=== PATIENT | male | born 1960 | race Caucasian/White ===

== ENCOUNTER → 2018-05-06 09:54 | Outpatient (CLI) | payer OTHER, SELFPAY ==
--- NOTE | 2018-05-06 09:59 | ECHOD_ITS ---
Reason For Study: dyspnea/SOB Procedure This was a 2D Doppler, Color Flow transthoracic echocardiogram. Exam performed in department. Left Ventricle Normal LV size. Left ventricular systolic function is normal. The estimated ejection fraction is 60 %. Transmitral and pulmonary venous doppler flow suggestive of impaired relaxation of left ventricle. No regional wall motion abnormalities noted. Right Ventricle Normal RV size. Normal systolic function. Atria Normal left atrium. Normal right atrium. Mitral Valve Normal mitral valve. Tricuspid Valve Normal tricuspid valve. Mild (1+) tricuspid valve insufficiency. Pulmonary artery systolic pressure is 24 mmHg. Aortic Valve Normal aortic valve. Trisinus/trileaflet aortic valve. Pulmonic Valve Normal pulmonic valve. Great Vessels Normal aortic root. The pulmonary artery is normal size. Normal inferior vena cava. Pericardium/Pleural No pericardial effusion. MMode/2D Measurements & Calculations LVIDd: 4.8 cm IVSd: 1.3 cm Ao root diam: 3.3 cm LVIDs: 3.1 cm LVPWd: 1.3 cm LA dimension: 4.4 cm RVDd: 3.5 cm FS: 34.7 % LAV(MOD-bp): 54.0 ml LA A4 area: 17.7 cm2 RA A4 area: 14.5 cm2 LAV(MOD-bp) Indexed: 22.0 ml/m2 LAV(MOD-sp2): 57.8 ml LAV(MOD-sp4): 49.9 ml Doppler Measurements & Calculations MV E max taurus: 75.6 cm/sec Lat Peak E' Taurus: 11.7 cm/sec Med Peak E' Taurus: 9.2 cm/sec MV A max taurus: 88.2 cm/sec E/E' lat: 6.4 E/E' med: 8.2 MV E/A: 0.86 Ao V2 max: 107.7 cm/sec LV V1 max: 96.9 cm/sec PA V2 max: 96.1 cm/sec Ao max P.6 mmHg LV V1 max P.8 mmHg TR max taurus: 228.7 cm/sec TR max P.9 mmHg Interpretation Summary Normal LV size. Left ventricular systolic function is normal. The estimated ejection fraction is 60 %. Transmitral and pulmonary venous doppler flow suggestive of impaired relaxation of left ventricle Pulmonary artery systolic pressure is 24 mmHg. Ordering Physician: Keyshawn Fierro Referring Physician: Kristy Denton Performed By: Natalia Aquino, MARVA, RVT
== END ==
PROVIDERS: Family Provider Family Medicine; PCP Family Medicine; Visit Provider Nurse Practitioner Family
DX: I36.1 Nonrheumatic tricuspid (valve) insufficiency (principal); I34.0 Nonrheumatic mitral (valve) insufficiency; R06.02 Shortness of breath
CPT/HCPCS: 93306

== ENCOUNTER → 2018-09-17 08:18 | Outpatient (CLI) | payer OTHER, SELFPAY ==
--- NOTE | 2018-09-17 08:22 | VDLE_ITS ---
Reason For Study: EDEMA RIGHT LEFT GSV is normal. CFV is compressible, spontaneous, phasic, CFV is compressible, spontaneous, phasic, competent, and demonstrates normal competent and demonstrates normal augmentation. augmentation. FV is compressible, spontaneous, phasic, competent and demonstrates normal augmentation. POP V is compressible, spontaneous, phasic, competent and demonstrates normal augmentation. T/P Trunk is compressible. PTV is compressible. RT PerV is compressible. Procedure Exam performed in department. The exam was diagnostic. A preliminary report was called and/or faxed to @ [phone] @ 8:55 am. <> Interpretation Summary Deep veins of the right lower extremity are patent and compressible segmentally. There is no evidence of right lower extremity deep vein thrombosis. Valvular competence appears intact within the proximal deep venous system on the right . The right greater saphenous vein appears patent and compressible segmentally. Ordering Physician: Keyshawn Baig Performed By: Natalia Aquino RDCS, RVT
== END ==
PROVIDERS: Family Provider Family Medicine; PCP Family Medicine; Visit Provider Family Medicine
DX: R60.0 Localized edema (principal)
CPT/HCPCS: 93971

== ENCOUNTER → 2018-12-20 10:29 | Outpatient (CLI) | payer OTHER, SELFPAY ==
[2018-08-03 13:15] VITALS: BMI 34.4
== END ==
PROVIDERS: Family Provider Family Medicine; PCP Family Medicine; Visit Provider Family Medicine
DX: F32.9 Major depressive disorder, single episode, unspecified (principal)
CPT/HCPCS: 36415; 84443

== ENCOUNTER 2019-03-02 20:46 | Emergency (ER) | payer OTHER, SELFPAY ==
[2019-03-02 20:48] VITALS: BP 169/104; PULSE 84; PULSE 88; RESP 17; TEMP 36.1; O2SAT 98; O2SAT 99; BMI 33.3
--- NOTE | 2019-03-02 20:54 | CT_ITS ---
We are attempting to reach Luis Gloria MD to discuss findings. An addendum with communication details will be sent when the communication is complete. STUDY: CT BRAIN WITHOUT CONTRAST REASON FOR EXAM: Male, 59 years old. Trauma. Anticoagulated patient. He was RADIATION DOSAGE (If Supplied By Facility): CTDIvol = ( 44.99 ) mGy, DLP = ( 863.60 ) mGycm TECHNIQUE: Transaxial CT imaging of the brain was performed without administration of intravenous contrast material. Individualized dose optimization techniques were used for this CT. COMPARISON: 09/19/2017 FINDINGS: Normal soft tissue structures. Normal calvarium. No skull fractures are seen. There is a moderately large acute right subdural hematoma extending the entire length of the right cerebral hemisphere. It measures 1.1 cm greatest thickness. It is causing mass effect. There is effacement of sulci. There is compression of the right lateral ventricle. There is 1.3 cm of midline shift from right to left. Additional subdural hematoma seen along the interhemispheric fissure and the right tentorium. There is subfalcine herniation. No definite transtentorial herniation. There are no other acute abnormalities. Normal visualized paranasal sinuses. CT/Brain/Head without Contrast IMPRESSION: Moderately large acute right subdural hematoma with significant mass effect and 1.3 cm of midline shift from right to left. Electronically Signed: Tito Cotto MD at 21:26 EDT , Service support ,
--- NOTE | 2019-03-02 21:10 | ED.RN ---
contacting [facility] for transfer
--- NOTE | 2019-03-02 21:10 | ED.RN ---
called [email or web address] checking weather at this time
--- NOTE | 2019-03-02 21:13 | EKG12_ITS ---
Test Reason : BLEED Blood Pressure : / mmHG Vent. Rate : 089 BPM Atrial Rate : 089 BPM P-R Int : 172 ms QRS Dur : 094 ms QT Int : 388 ms P-R-T Axes : 089 076 020 degrees QTc Int : 472 ms Normal sinus rhythm Nonspecific T wave abnormality Abnormal ECG Confirmed by SYD WALKER, OLY ([id number]), editorial director OLAMIDE QUICK ([id number]) on 03/07/2019 10:51:42 AM Referred By: MR Confirmed By:OLY VELARDE MD
--- NOTE | 2019-03-02 21:17 | ED.DCSUM_ITS ---
History of Present Illness Chief Complaint: Head Injury Narrative: Patient presenting for evaluation secondary to head injury. Patient is on Coumadin secondary to DVT. Patient reports that at about 3 PM he suffered a strike to the head as he was doing yard work in a branch hit him in the head. There is no loss of consciousness. Patient denied that he had any initial visual changes numbness or weakness. Patient reports that just prior to arrival however, he developed a significant headache. This is generalized and severe. He denies any visual changes numbness or weakness at this time. He has not vomited. Pain is sharp and throbbing and generalized throughout his entire head. He denies any neck pain or any other injuries at this time. Past Medical History - Allergies and Home Meds Allergies/Adverse Reactions: Allergies erythromycin base Allergy (Verified 03/02/19 20:47) Nausea PT STATES HE WAS TOLD TO NEVER TAKE IT AGAIN D/T SEVERITY OF NAUSEA gabapentin [From Neurontin] Allergy (Verified 03/02/19 20:47) Other ITP Penicillins Allergy (Verified 03/02/19 20:47) Rash venom-honey bee [bee venom (honey bee)] Allergy (Verified 03/02/19 20:47) Anaphylaxis colestipol Adverse Reaction (Mild, Verified 03/02/19 20:47) Diarrhea and hemorroids Primary Care Physician: Kristy Denton MD [Primary Care Provider] - Surgical History: - - Cervical fusion ?2, left nephrectomy, splenectomy, left retinal surgery status post trauma. Smoking Status: Never smoker - Family History Paternal Family History: Family History (Last Reviewed 08/03/18 @ 13:37 by Duke Landaverde MD) Father CAD (coronary artery disease) Myocardial infarction Diabetes Hx of CABG Uterine cancer icd Mother Diabetes Brother Hypertension Hyperlipidemia Brother Hypertension Hyperlipidemia Other Heart disease Family History: Reports: Heart Disease, Hypertension Sibling Family History: Family History (Last Reviewed 08/03/18 @ 13:37 by Duke Landaverde MD) Father CAD (coronary artery disease) Myocardial infarction Diabetes Hx of CABG Uterine cancer icd Mother Diabetes Brother Hypertension Hyperlipidemia Brother Hypertension Hyperlipidemia Other Heart disease Family History: Reports: Heart Disease, Hypertension Review of Systems All systems negative except as indicated Eyes: Denies: Visual changes - bilaterally Neurological: Reports: Headache. Denies: Weakness, Parasthesia Physical Exam Vital Signs/Narrative: Vital Signs Temp Pulse Resp BP Pulse Ox 03/02/19 20:48 96.9 F L 88 17 169/104 H 98 Inital Vital Signs reviewed: Yes General: Well nourished, Well developed, - - Relatively distressed secondary to pain Airways patent, breath sounds equal bilateral, central peripheral pulses 2+ and symmetric, GCS 15 out of 15 Head: Normocephalic, - - Abrasion noted over the patient's right parietal region of the scalp, no evidence of depressed skull fracture Eyes: Perrl, EOMI Neck: Nontender, Full ROM. Negative for: Spinal Tenderness Cardiovascular: Regular rate, Regular rhythm, No murmurs Respiratory: No distress, CTA bilaterally, Chest nontender Abdomen: Soft, Nontender, Nondistended, Normal bowel sounds Back: Nontender Skin: Normal color, No rash Neurological: Alert, Oriented x3, Cranial nerves II-XII grossly intact, Normal Strength, Normal Sensation Diagnostic/Tx/Re-eval - EKG Initial EKG Interpretation: - - Sinus rhythm of 89 with nonspecific T wave changes, isoelectric ST segments, normal intervals no evidence of acute ischemia or arrhythmia. - Medical Decision Making Patient presented secondary to head injury. Patient appeared somewhat in extremis on presentation, he was immediately taken back to CTA which revealed the patient to have a right-sided subdural hematoma with some midline shift. IV was immediately established, laboratory studies were obtained. Patient was given Kcentra as well as Keppra. Transport was immediately arranged via [email or web address], acceptance was arranged via [facility] for trauma. Patient was maintaining his airway, not obtunded, he did not require intubation for airway control. Patient was transferred in critical condition. Disposition: Transfer Transferred to: [facility] Critical care time (excluding procedures): 30-74 minutes ED Disposition - Plan for ED Patient: Disposition: [facility] Diagnosis: Subdural hematoma Referrals: Kristy Denton MD [Primary Care Provider] -
[2019-03-02] MEDS: Ondansetron 4 MG/2 ML Vial IV (21:22)
[2019-03-02] MEDS: morphine 8 MG/ML Syringe IV (21:22)
[2019-03-02 21:26] LABS: Absolute Lymphocyte Count 4.05 X10^3/ul (0.83-4.51); Absolute Neutrophil Count 17.7 X10^3/uL (2.0-7.7); Basophil% 0.4 % (0-1); Eosinophil# 0.22 X10^3/uL; Eosinophils% 0.9 % (0-5); Hematocrit 41.3 % (40-54); Hemoglobin 14.3 g/dl (13.0-16.5); Lymphocyte # 4.05 X10^3/ul (4.0); Lymphocyte % 16.8 % (19-41); Mean Corp Hgb Conc 34.6 g/gl (32-36); Mean Corpuscular Hgb 31.4 pg (27.0-32.0); Mean Corpuscular Volume 90.8 fL (80-94); Mean Platelet Vol. 8.8 fl (6.2-12.0); Monocyte# 1.92 X10^3/uL; Neutrophil # 17.74 X10^3/uL (2.7-7.7); Neutrophil % 73.5 % (47-70); Platelet Count 587 K/mm3 (150-450); RBC Distribution Width CV 14.5 % (11.6-14.6); RBC Distribution Width SD 47.5 fl (35.1-43.9); Red Blood Count 4.55 M/mm3 (4.6-6.2); White Blood Count 24.1 K/mm3 (4.4-11.0)
[2019-03-02 21:28] LABS: Differential Indicated SCAN CRITERIA MET; POSITIVE COUNT NO; POSITIVE DIFFERENTIAL YES; POSITIVE MORPHOLOGY NO
[2019-03-02 21:32] LABS: International Normalized Ratio 1.9; Partial Thromboplast Time 29.2 Seconds (24.1-36.2); Prothrombin Time (Protime)PT. 21.7 SECONDS (11.7-14.9)
[2019-03-02 21:35] LABS: Anion Gap 9 (5-15); BUN 12 mg/dL (7-18); Calcium,Total 9.6 mg/dL (8.5-10.1); Chloride 107 mmol/L (98-107); Creatinine, Serum 1.34 mg/dL (0.70-1.30); EST Glomerular Filtration Rate 58 mL/min (>60); Est Glom Filt Rate - Afr Amer 71 mL/min (>60); Estimated Creatinine Clearance 70.72 ml/min; Glucose 150 mg/dL (74-106); Potassium 3.6 mmol/L (3.5-5.1); Sodium Level 138 mmol/L (136-145)
[2019-03-02 21:42] LABS: Differential Comment SCANNED
[2019-03-02] MEDS: levETIRAcetam IV 1,000 MG/100 ML BAG 400 MG IV (21:46)
[2019-03-02 21:47] VITALS: BP 176/103; PULSE 85; RESP 24; O2SAT 100
[2019-03-02] MEDS: HUMAN PROTHROMBIN COMPLX(PCC) 2,500 UNIT in Viaflex Bag 1 BAG 500 UNIT IV (21:47)
--- NOTE | 2019-03-02 21:59 | ED.RN ---
PATIENT WAS LIFE FL[facility] AND REPORT GIVEN TO [employer]. IV MEDICATION WERE BEING STARTED BY THE TEAM BEFORE GOING OUT THE DOOR AND KEPPRA WAS GIVEN TO TAKE WITH THEM. REPORT WAS GIVEN TO SPARKLE AT [facility]. PATIENT WAS PAINFUL BUT STABLE CURRENTLY. 'S SON IS COMING TO TAKE HER TO THE HOSPITAL. SHE WAS GIVEN SOME INFORMATION ABOUT THE SITUATION TO HELP RELIEVE SOME WORRIES BY THIS NURSE. DIRECTIONS WERE SUPPLIED BY [facility]
[2019-03-03 12:39] LABS: Pathologist Review Reviewed
== END 2019-03-02 21:46 | disposition short-term general hospital (02) ==
LOC: ED 21:14
PROVIDERS: Emergency Provider Emergency Medicine; Family Provider Family Medicine; PCP Family Medicine
DX: S06.5X0A Traumatic subdural hemorrhage without loss of consciousness, initial encounter (principal); I82.409 Acute embolism and thrombosis of unspecified deep veins of unspecified lower extremity; Z79.01 Long term (current) use of anticoagulants; W22.8XXA Striking against or struck by other objects, initial encounter; Y93.H9 Activity, other involving exterior property and land maintenance, building and construction; Y92.007 Garden or yard of unspecified non-institutional (private) residence as the place of occurrence of the external cause; Y99.8 Other external cause status
CPT/HCPCS: 70450; 80048; 85025; 85610; 85730; 93005; 96365; 96368; 96375; 99284; C9132; J7030; A4216; J2405; J3490

== ENCOUNTER → 2019-07-12 | Outpatient (CLI) | payer OTHER, SELFPAY ==
[2019-07-12 12:41] LABS: Cholesterol 133 mg/dL (200); High Density Lipoprotein 41 mg/dL; Triglycerides 82 mg/dL; Very Low Density Lipoprotein 16 mg/dL (5-40)
[2019-07-12 12:55] LABS: Anion Gap 9 (5-15); BUN 11 mg/dL (7-18); BUN/Creat Ratio 11.3 RATIO (10-20); Calcium,Total 9.2 mg/dL (8.5-10.1); Chloride 108 mmol/L (98-107); Creatinine, Serum 0.98 mg/dL (0.70-1.30); EST Glomerular Filtration Rate 84 mL/min (>60); Est Glom Filt Rate - Afr Amer 102 mL/min (>60); Glucose 80 mg/dL (74-106); Potassium 3.8 mmol/L (3.5-5.1); Sodium Level 140 mmol/L (136-145)
== END | disposition home or self-care (01) ==
LOC: MFPLAB 10:17
PROVIDERS: Family Provider Family Medicine; PCP Family Medicine; Referring Provider Family Medicine; Visit Provider Internal Medicine Cardiovascular Disease
DX: E78.5 Hyperlipidemia, unspecified (principal); I10 Essential (primary) hypertension
CPT/HCPCS: 36415; 80048; 80061

== ENCOUNTER → 2019-08-02 | Outpatient (CLI) | payer OTHER, SELFPAY ==
[2019-08-02 12:49] VITALS: BMI 31.3
[2019-08-02 15:33] LABS: Anion Gap 6 (5-15); BUN 11 mg/dL (7-18); BUN/Creat Ratio 10.8 RATIO (10-20); Calcium,Total 9.1 mg/dL (8.5-10.1); Chloride 109 mmol/L (98-107); Creatinine, Serum 1.02 mg/dL (0.70-1.30); EST Glomerular Filtration Rate 80 mL/min (>60); Est Glom Filt Rate - Afr Amer 97 mL/min (>60); Glucose 93 mg/dL (74-106); Potassium 3.7 mmol/L (3.5-5.1); Sodium Level 142 mmol/L (136-145)
[2019-08-02 16:17] LABS: AST(SGOT) 26 U/L (15-37); Alanine Aminotransfer ALT/SGPT 26 U/L (16-61); Albumin, Serum 3.9 g/dL (3.2-5.0); Alkaline Phosphatase 128 U/L (45-117); Globulin 4.3 g/dL (2.2-4.2); Protein, Total 8.2 g/dL (6.4-8.2)
== END | disposition home or self-care (01) ==
LOC: LAB 13:59
PROVIDERS: Family Provider Family Medicine; PCP Family Medicine; Referring Provider Internal Medicine Cardiovascular Disease; Visit Provider Internal Medicine Cardiovascular Disease
DX: I10 Essential (primary) hypertension (principal); E78.00 Pure hypercholesterolemia, unspecified
CPT/HCPCS: 36415; 80048; 80076

== ENCOUNTER → 2020-11-14 12:27 | Outpatient (CLI) | payer OTHER, SELFPAY ==
[2020-08-07 13:12] VITALS: BMI 36.1
[2020-11-14 15:29] LABS: Absolute Lymphocyte Count 5.13 X10^3/uL (0.83-4.51); Absolute Neutrophil Count 7.6 X10^3/uL (2.0-7.7); Basophil# 0.18 X10^3/uL; Basophil% 1.2 % (0-1); Eosinophil# 0.95 X10^3/uL; Eosinophils% 6.2 % (0-5); Hematocrit 46.5 % (40-54); Lymphocyte # 5.13 X10^3/ul (4.0); Lymphocyte % 33.5 % (19-41); Mean Corp Hgb Conc 32.3 g/dL (32-36); Mean Corpuscular Hgb 31.4 pg (27.0-32.0); Mean Corpuscular Volume 97.5 fL (80-94); Mean Platelet Vol. 9.3 fl (6.2-12.0); Monocyte# 1.35 X10^3/uL; Monocyte% 8.8 % (0-10); NRBC Flagged by Analyzer 0 % (0-5); Neutrophil # 7.62 X10^3/uL (2.7-7.7); Neutrophil % 49.6 % (47-70); POSITIVE DIFFERENTIAL YES; Platelet Count 579 K/mm3 (150-450); RBC Distribution Width CV 13.7 % (11.6-14.6); RBC Distribution Width SD 49.8 fl (35.1-43.9); Red Blood Count 4.77 M/mm3 (4.6-6.2); White Blood Count 15.3 K/mm3 (4.4-11.0)
[2020-11-14 15:48] LABS: Differential Indicated SCAN CRITERIA MET
[2020-11-14 15:52] LABS: AST(SGOT) 33 U/L (15-37); Alanine Aminotransfer ALT/SGPT 44 U/L (16-61); Albumin, Serum 4.2 g/dL (3.2-5.0); Alkaline Phosphatase 90 U/L (45-117); Anion Gap 9 (5-15); BUN 12 mg/dL (7-18); BUN/Creat Ratio 10.9 RATIO (10-20); Chloride 105 mmol/L (98-107); Cholesterol 294 mg/dL (200); EST Glomerular Filtration Rate 73 mL/min (>60); Est Glom Filt Rate - Afr Amer 88 mL/min (>60); Globulin 4.4 g/dL (2.2-4.2); Glucose 89 mg/dL (74-106); High Density Lipoprotein 38 mg/dL; Potassium 4.1 mmol/L (3.5-5.1); Protein, Total 8.6 g/dL (6.4-8.2); Sodium Level 136 mmol/L (136-145); Thyroid Stim Hormone (TSH) 1.07 uIU/mL (0.358-3.74); Triglycerides 364 mg/dL; Very Low Density Lipoprotein 73 mg/dL (5-40)
[2020-11-14 16:16] LABS: Differential Comment SCANNED
[2020-11-14 16:30] LABS: Hemoglobin A1c 5.9 % (3.8-5.6)
== END ==
PROVIDERS: PCP Family Medicine; Referring Provider Family Medicine; Visit Provider Family Medicine
DX: I10 Essential (primary) hypertension (principal); R63.5 Abnormal weight gain
CPT/HCPCS: 36415; 80053; 80061; 83036; 84443; 85025

== ENCOUNTER → 2021-07-31 11:09 | Outpatient (CLI) | payer OTHER, SELFPAY ==
[2021-07-31 12:15] LABS: Absolute Lymphocyte Count 3.98 X10^3/uL (0.83-4.51); Absolute Neutrophil Count 4.7 X10^3/uL (2.0-7.7); Eosinophil# 0.33 X10^3/uL; Eosinophils% 3.3 % (0-5); Hematocrit 44.7 % (40-54); Hemoglobin 14.5 g/dL (13.0-16.5); Lymphocyte # 3.98 X10^3/ul (0.83-4.51); Lymphocyte % 40.2 % (19-41); Mean Corp Hgb Conc 32.4 g/dL (32-36); Mean Corpuscular Hgb 32.4 pg (27.0-32.0); Mean Corpuscular Volume 99.8 fL (80-94); Mean Platelet Vol. 10.1 fl (6.2-12.0); Monocyte# 0.82 X10^3/uL; Monocyte% 8.3 % (0-10); NRBC Flagged by Analyzer 0 % (0-5); Neutrophil # 4.65 X10^3/uL (2.7-7.7); Neutrophil % 46.9 % (47-70); Platelet Count 485 K/mm3 (150-450); RBC Distribution Width CV 14.4 % (11.6-14.6); RBC Distribution Width SD 53.5 fl (35.1-43.9); Red Blood Count 4.48 M/mm3 (4.6-6.2); White Blood Count 9.9 K/mm3 (4.4-11.0)
[2021-07-31 12:30] LABS: Microalbumin,Random Urine 8.6 mg/L (NO RANGE EST.); Microalbumin:Creatinine Ratio 11.6 mg/g CRE (<30 mg/g CRE)
[2021-07-31 12:44] LABS: Anion Gap 5 (5-15); BUN 16 mg/dL (7-18); BUN/Creat Ratio 14.7 RATIO (10-20); Calcium,Total 9.3 mg/dL (8.5-10.1); Chloride 106 mmol/L (98-107); Creatinine, Serum 1.09 mg/dL (0.70-1.30); EST Glomerular Filtration Rate 74 mL/min (>60); Est Glom Filt Rate - Afr Amer 89 mL/min (>60); Glucose 79 mg/dL (74-106); Potassium 4.3 mmol/L (3.5-5.1); Sodium Level 136 mmol/L (136-145)
[2021-07-31 12:45] LABS: AST(SGOT) 19 U/L (15-37); Alanine Aminotransfer ALT/SGPT 20 U/L (16-61); Alkaline Phosphatase 84 U/L (45-117); Bilirubin, Direct 0.09 mg/dL (0.00-0.30); Cholesterol 265 mg/dL (200); Globulin 4.5 g/dL (2.2-4.2); High Density Lipoprotein 45 mg/dL; Protein, Total 8.5 g/dL (6.4-8.2); Triglycerides 184 mg/dL; Very Low Density Lipoprotein 37 mg/dL (5-40)
== END ==
PROVIDERS: Internal Medicine Cardiovascular Disease; PCP Family Medicine; Referring Provider Family Medicine; Visit Provider Family Medicine
DX: E78.5 Hyperlipidemia, unspecified (principal); I10 Essential (primary) hypertension; D64.9 Anemia, unspecified
CPT/HCPCS: 36415; 80048; 80061; 80076; 82043; 82570; 85025

== ENCOUNTER → 2022-02-25 | Outpatient (CLI) | payer OTHER, SELFPAY ==
[2022-02-25 12:24] LABS: International Normalized Ratio 1.9; Prothrombin Time (Protime)PT. 21.4 SECONDS (11.7-14.9)
[2022-02-25 12:45] LABS: PSA,Total - Annual Screen 0.48 ng/mL (0.00-4.00)
== END | disposition home or self-care (01) ==
LOC: MFPLAB 10:59
PROVIDERS: PCP Family Medicine; Visit Provider Family Medicine
DX: Z00.00 Encounter for general adult medical examination without abnormal findings (principal); I27.82 Chronic pulmonary embolism
CPT/HCPCS: 36415; 84153; 85610; G0103

== ENCOUNTER → 2022-09-16 | Outpatient (CLI) | payer OTHER, SELFPAY ==
--- NOTE | 2022-09-16 07:21 | ECHOD_ITS ---
Reason For Study: HTN Procedure This was a 2D Doppler, Color Flow transthoracic echocardiogram. The study was technically difficult. Defimnity deferred due to single kidney. Exam performed in department. Left Ventricle Normal LV size. Mild concentric left ventricular hypertrophy. Left ventricular systolic function is normal. The estimated ejection fraction is 60 %. No regional wall motion abnormalities noted. Right Ventricle Normal RV size. Normal systolic function. Atria Normal left atrium. Normal right atrium. Mitral Valve Normal mitral valve. Tricuspid Valve Normal tricuspid valve. Aortic Valve Normal aortic valve. Pulmonic Valve Normal pulmonic valve. Great Vessels Normal aortic root. The pulmonary artery is normal size. Normal inferior vena cava. Pericardium/Pleural No pericardial effusion. MMode/2D Measurements & Calculations LVIDd: 4.6 cm IVSd: 1.3 cm Ao root diam: 3.3 cm LVIDs: 3.2 cm LVPWd: 1.3 cm RVDd: 4.5 cm FS: 29.9 % LAV(MOD-bp): 59.5 ml LVAd ap4: 35.4 cm2 SV(MOD-sp4): 56.4 ml LAV(MOD-bp) Indexed: 23.7 ml/m2 LVLd ap4: 9.4 cm LAV(MOD-sp2): 52.1 ml EDV(MOD-sp4): 111.5 ml LAV(MOD-sp4): 49.1 ml EDV(sp4-el): 113.8 ml LVAs ap4: 22.5 cm2 LVLs ap4: 7.9 cm ESV(MOD-sp4): 55.0 ml ESV(sp4-el): 54.8 ml EF(MOD-sp4): 50.6 % EF(sp4-el): 51.8 % SV(sp4-el): 59.0 ml LA A4 area: 19.7 cm2 LA dimension(2D): 3.8 cm RA A4 area: 22.1 cm2 Time Measurements MV dec time: 0.19 sec Doppler Measurements & Calculations MV E max taurus: 69.1 cm/sec Lat Peak E' Taurus: 13.4 cm/sec Med Peak E' Taurus: 6.8 cm/sec MV A max taurus: 66.5 cm/sec E/E' lat: 5.1 E/E' med: 10.2 MV E/A: 1.0 MV V2 max: 66.8 cm/sec Ao V2 max: 125.8 cm/sec MV max P.8 mmHg MV dec slope: 401.0 cm/sec2 Ao max P.3 mmHg MV V2 mean: 42.6 cm/sec Ao V2 mean: 85.6 cm/sec MV mean P.82 mmHg Ao mean P.4 mmHg MV V2 VTI: 24.8 cm Ao V2 VTI: 27.3 cm LV V1 max: 94.6 cm/sec MR max taurus: 557.1 cm/sec PA V2 max: 84.8 cm/sec LV V1 max P.6 mmHg MR max P.1 mmHg PA V2 mean: 57.0 cm/sec LV V1 mean P.1 mmHg LV V1 mean: 67.7 cm/sec LV V1 VTI: 21.9 cm ECHO/Echo Complete Interpretation Summary Normal LV size. Left ventricular systolic function is normal. The estimated ejection fraction is 60 %. Mild concentric left ventricular hypertrophy. Ordering Physician: Duke Landaverde Referring Physician: Duke Landaverde Performed By: Tami Escalante RCS
--- NOTE | 2022-09-16 13:01 | STRESSREP ---
Stress Test Report Pharmacologic perfusion stress test. 62-year-old male with a history of chest pain. Stress protocol: Resting EKG demonstrates normal sinus rhythm with a rate of 65 bpm normal intervals are noted resting blood pressure is 144/74 mmHg. 0.4 mg of regadenoson was infused per usual protocol followed by rapid intravenous saline flush injection continuous EKG monitoring was performed. The maximum heart rate attained was 86 bpm which was 53% of max impacted heart rate the maximum workload was 1 metabolic equivalent. At rest there were no ST or T wave changes noted to suggest abnormal flow reserve and at peak infusion nonspecific ST changes were noted with did not meet the criteria for ischemia. No clinical angina was noted. Myocardial perfusion protocol. 10.0 mCi of technetium 99m sestamibi was injected at rest. 0.4 mg of regadenoson was infused per usual protocol. At peak infusion 33.7 mCi of technetium 99m sestamibi was injected stress images were obtained stress and rest images were reconstructed and compared in the short axis vertical long and horizontal long axis. Gated images were also obtained Perfusion SPECT analysis: Review of the stress images demonstrate normal uptake of tracer noted in all areas of the myocardium. The resting images similarly demonstrate normal uptake of tracer noted in all areas of the myocardium. No areas of reversibility are noted to suggest ischemia and no previous infarct is noted. Gated SPECT analysis: The gated ejection fraction is 60%. Conclusion: Normal pharmacologic myocardial perfusion stress test. Preserved ejection fraction
== END | disposition home or self-care (01) ==
PROVIDERS: PCP Family Medicine; Referring Provider Internal Medicine Cardiovascular Disease; Visit Provider Internal Medicine Cardiovascular Disease
DX: I10 Essential (primary) hypertension (principal); E78.00 Pure hypercholesterolemia, unspecified
CPT/HCPCS: 78452; 93017; 93306; A9500; A4216; J2785

== ENCOUNTER → 2022-09-30 | Outpatient (CLI) | payer OTHER, SELFPAY ==
--- NOTE | 2022-09-30 10:32 | RAD_ITS ---
EXAM: XR LUMBOSACRAL SPINE, 4 OR 5 VIEWS CLINICAL INDICATION: BACK PAIN TECHNIQUE: Frontal, lateral and bilateral oblique views of the lumbar spine. This report was created using [email or web address] report generation technology. COMPARISON: 11/06/2017 FINDINGS: VERTEBRAE: There are small osteophytes at L3 and L4. Preserved vertebral body height. No fracture. No spondylolisthesis. Preservation of the normal lumbar lordosis. No significant facet arthropathy. DISC SPACES: No acute findings. Disc spaces are maintained. GASTROINTESTINAL TRACT: Unremarkable as visualized. Included bowel gas pattern is non-obstructive. RAD/L/S Spine Min 4 Views IMPRESSION: No acute osseous abnormalities. There are degenerative changes with osteophyte formation. Electronically Signed: Yasmany Brothers MD at 17:47 EST ,
== END | disposition home or self-care (01) ==
LOC: MTRAD 10:31
PROVIDERS: PCP Family Medicine; Referring Provider Family Medicine; Visit Provider Family Medicine
DX: M54.9 Dorsalgia, unspecified (principal)
CPT/HCPCS: 72110

== ENCOUNTER → 2023-03-04 | Outpatient (CLI) | payer OTHER, SELFPAY ==
--- NOTE | 2023-03-04 06:32 | MRI_ITS ---
INDICATION: DISC DEGEN, LOW BACK PAIN EXAMINATION: MRI - MR Spine Lumbar W/O Contrast TECHNIQUE: Multiplanar and multisequence MR images of the lumbar spine. IV Contrast Dosage and Agent: None. COMPARISON: None. FINDINGS: VERTEBRAE: Vertebral body heights are preserved. Vertebral bodies demonstrate moderate diffuse anterior osteophyte formation. Congenitally narrow spinal canal. VERTEBRAL ALIGNMENT: No spondylolisthesis. There is preservation of the normal lumbar lordosis. CORD: Normal position and signal intensity of the conus medullaris. L1/L2: Mild disc desiccation, mild bilateral facet arthropathy, mild bilateral neural foraminal encroachment. L2/L3: Mild disc desiccation, mild bilateral facet arthropathy, mild bilateral neural foraminal encroachment L3/L4: Moderate disc desiccation, mild disc bulging, mild bilateral facet arthropathy, moderate bilateral neural foraminal encroachment L4/L5: Moderate disc desiccation, moderate disc bulging, moderate bilateral facet arthropathy and ligamentous hypertrophy, moderate central stenosis, moderate bilateral neural foraminal encroachment. L5/S1: Mild disc desiccation, mild disc bulging, mild bilateral facet arthropathy, moderate bilateral neural foraminal encroachment. SOFT TISSUES: Unremarkable. MRI/Spine Lumbar (Routine) IMPRESSION: Mild disc bulging L3-S1. Multilevel degenerative disc disease, central stenosis, facet arthropathy and neural foraminal encroachment as above. Electronically Signed: Efra Painter MD, YOUNG at 23:14 EDT ,
== END | disposition home or self-care (01) ==
PROVIDERS: PCP Family Medicine; Referring Provider Anesthesiology Pain Medicine; Visit Provider Anesthesiology Pain Medicine
DX: M51.37 Other intervertebral disc degeneration, lumbosacral region (principal)
CPT/HCPCS: 72148

== ENCOUNTER → 2023-03-10 | Outpatient (CLI) | payer OTHER, SELFPAY ==
[2023-03-10 12:39] LABS: AST(SGOT) 35 U/L (15-37); Alanine Aminotransfer ALT/SGPT 38 U/L (16-61); Albumin, Serum 3.7 g/dL (3.2-5.0); Alkaline Phosphatase 80 U/L (45-117); Bilirubin, Direct 0.11 mg/dL (0.00-0.30); Cholesterol 264 mg/dL (200); Globulin 4.4 g/dL (2.2-4.2); High Density Lipoprotein 37 mg/dL; Protein, Total 8.1 g/dL (6.4-8.2); Triglycerides 223 mg/dL; Very Low Density Lipoprotein 45 mg/dL (5-40)
== END | disposition home or self-care (01) ==
LOC: MTLAB 09:32
PROVIDERS: PCP Family Medicine; Referring Provider Nurse Practitioner Family; Visit Provider Nurse Practitioner Family
DX: E78.00 Pure hypercholesterolemia, unspecified (principal)
CPT/HCPCS: 36415; 80061; 80076

== ENCOUNTER → 2023-11-24 | Outpatient (CLI) | payer OTHER, SELFPAY ==
--- OUTSIDE RECORDS SUMMARY | 2023-11-24 08:44 | XMS RPT_ITS | CCD ---
Author Name Unknown Address [address] [place] [address] Organization [facility] Care Team Providers Care Project Development Manager Name Role Phone Lorraine MARROQUIN, Stephanie Montoya Unavailable Unavailable LOPEZ Lehman, Donna Rivero Unavailable Unavailabl e [employer] Unavailable LOPEZ Lehman, Donna Rivero Unavailable Unavailluther Lehman RN, Donna Rivero Unavailable Unavailabl Arabella Armas Unavailable Unavailable Arabella Pinon Unavailable Unavailable Allergies Allergy Classification Reported Allergen(s) Allergy Type Date of Onset Reaction(s) Facility (20 sources) apis mellifera venom; Translations: [BEE STINGS] allergy to substance 0 Anaphylaxis [facility] Work Phone: (20 sources) Erythromycin Drug Allergy 0 Nausea [facility] Work Phone: (7 sources) gabapentin Drug Allergy 4 [facility] Work Phone: (20 sources) Penicillin; Translations: [PENICILLIN] Drug Allergy 0 Rash [facility] Work Phone: Medications Completed/Discontinued Medications Medication Drug Class(es) Dates Sig (Normalized) Sig (Original) acetaminophen 300 mg / HYDROcodone bitartrate 5 mg oral tablet (14 sources) Opioid Agonist Start: 01-01-2016 End: 01-25-2016 take 1 tablet by mouth four times daily as needed VICODIN 5-300 MG TABS One tablet by mouth four times daily as needed HYDROCODONE-ACET AMINOPHEN [id number] Donna Lehman RN amLODIPine 5 mg oral tablet (7 sources) Dihydropyridine Calcium Channel Randy Start: 03-03-2016 take 1 tablet by mouth once daily NORVASC 5 MG TABS One tablet by mouth daily AMLODIPINE BESYLATE [id number] Duke Landaverde MD ascorbic acid 500 mg oral tablet (9 sources) Vitamin C Start: 01-25-2016 End: 07-16-2017 take 1 tablet by mouth four times daily VITAMIN C 500 MG TABS One tablet by mouth four times daily ASCORBIC ACID [id number] Duke Landaverde MD aspirin 81 mg oral tablet (14 sources) Platelet Aggregation Inhibitor, Nonsteroidal Anti-inflammatory Drug Start: 07-13-2012 take 1 tablet by mouth once daily ASPIRIN 81 MG TABS One tablet by mouth daily ASPIRIN [id number] Duke Landaverde MD Problems Active Problems Problem Classification Problem Date Documented Da te Episodic/Chronic Disorders of lipid metabolism (14 sources) Hyperlipidemia; Translations: [Hyperlipidemia, unspecified] Onset: 08-14-2009 01-27-2011 Chronic Essential hypertension (7 sources) Hypertensive disorder; Translations: [Essential (primary) hypertension] Onset: 01-27-2011 01-27-2011 Chronic Joint disorders and dislocations; trauma-related (7 sources) Derangement of knee; Translations: [Unspecified internal derangement of unspecified knee] Onset: 02-12-2015 02-14-2015 Chronic Residual codes; unclassified (7 sources) Obstructive sleep apnea syndrome; Translations: [Obstructive sleep apnea (adult) (pediatric)] Onset: 07-11-2014 07-11-2014 Chronic Past or Other Problems Problem Classification Problem Date Documented Da te Episodic/Chronic Cardiac dysrhythmias (7 sources) Sinus bradycardia; Translations: [Sinoatrial node dysfunction] Onset: 07-11-2014 07-11-2014 Episodic Joint disorders and dislocations; trauma-related (7 sources) Tear of medial meniscus of knee; Translations: [Tear of medial cartilage or meniscus of knee, current] Onset: 02-12-2015 02-14-2015 Episodic Nonspecific chest pain (14 sources) Tight chest; Translations: [Other chest pain] Onset: 01-27-2011 01-27-2011 Episodic Other aftercare (7 sources) Long-term drug therapy; Translations: [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 therapy] Onset: 01-27-2011 01-27-2011 Episodic Other lower respiratory disease (7 sources) Dyspnea; Translations: [Shortness of breath] Onset: 01-27-2011 01-27-2011 Episodic Other non-traumatic joint disorders (7 sources) Knee pain; Translations: [Pain in left knee] Onset: 02-12-2015 02-12-2015 Episodic Residual codes; unclassified (7 sources) Family history of ischemic heart disease; Translations: [Family history of ischemic heart disease and other diseases of the circulatory system] Onset: 01-27-2011 01-27-2011 Episodic Results Test Name Value Interpretation Reference Range Facil ity Vital Signs Date Time Vital Sign Value Performing Clinician Facility 07-16-2017 11:32-0400 Body height 182.88 cm [facility] Work Phone: 07-16-2017 11:32-0400 Body mass index (BMI) [Ratio] 34.72 kg/m2 [facility] Work Phone: 07-16-2017 11:32-0400 Body weight 116.12 kg [facility] Work Phone: 07-16-2017 11:32-0400 Diastolic blood pressure 60 mm[Hg] [facility] Work Phone: 07-16-2017 11:32-0400 Heart rate 64 /min [facility] Work Phone: 07-16-2017 11:32-0400 Respiratory rate 20 /min [facility] Work Phone: 07-16-2017 11:32-0400 Systolic blood pressure 120 mm[Hg] [facility] Work Phone: 01-25-2016 14:06-0400 Body mass index (BMI) [Ratio] 35.3 kg/m2 [facility] Work Phone: 01-25-2016 14:06-0400 Body surface area Derived from formula 2.38 m2 [facility] Work Phone: 01-25-2016 14:06-0400 Body weight 118.07 kg [facility] Work Phone: 01-25-2016 14:06-0400 Diastolic blood pressure 70 mm[Hg] [facility] Work Phone: 01-25-2016 14:06-0400 Systolic blood pressure 140 mm[Hg] [facility] Work Phone: 01-11-2015 14:12-0500 Heart rate 74 /min [facility] P[facility] Work Phone: 01-11-2015 14:12-0500 Respiratory rate 16 /min [facility] [employer] [facility] Work Phone: 08-14-2009 09:18-0400 Body height 182.88 cm [facility] Pert[facility] Work Phone: 08-14-2009 09:18-0400 Body weight 103.18 kg Donna Lehman RN [facility] Work Phone: Procedures Date Procedure Procedure Detail Performing Clinician Start: 03-03-2019 Antibody screen Plan of Treatment Date Care Activity Detail Author Start: 08-03-2018 End: 08-03-2018 Patient encounter procedure Appointment [facility] Work Phone: Start: 2018 End: 2018 Patient encounter procedure Appointment [facility] Work Phone: Start: 07-16-2017 End: 07-16-2017 Patient encounter procedure Appointment [facility] Work Phone: Start: 07-16-2017 End: 07-16-2017 Follow Up Appt 6 months Follow Up Appt 6 months [facility] Work Phone: Start: 07-16-2017 End: 07-16-2017 Hepatic function 2000 panel - Serum or Plasma *Hepatic Function Panel [facility] Phone: Start: 07-16-2017 End: 07-16-2017 [facility] Phone: Start: 07-16-2017 End: 07-16-2017 Lipid 1996 panel - Serum or Plasma *Lipid Profile CC PCP [facility] Work Phone: Start: 03-05-2017 End: 05-29-2017 Hepatic function 2000 panel - Serum or Plasma *Hepatic Function Panel [facility] Work Phone: Start: 03-05-2017 End: 05-29-2017 Lipid 1996 panel - Serum or Plasma *Lipid Profile CC PCP [facility] Work Phone: Start: 07-18-2016 End: 09-03-2016 Hepatic function 2000 panel - Serum or Plasma *Hepatic Function Panel [facility] Work Phone: Start: 07-18-2016 End: 09-03-2016 Lipid 1996 panel - Serum or Plasma *Lipid Profile CC PCP [facility] Work Phone: Start: 01-25-2016 End: 01-25-2016 Follow Up Appt 6 months Follow Up Appt 6 months [facility] Work Phone: Start: 01-25-2016 End: 01-25-2016 MMM [facility] Work Phone: Start: 01-04-2016 End: 01-16-2016 Hepatic function 2000 panel - Serum or Plasma *Hepatic Function Panel [employer] [facility] Work Phone: Start: 01-04-2016 End: 01-16-2016 Lipid 1996 panel - Serum or Plasma *Lipid Profile CC [facility] Work Phone: Start: 06-27-2015 End: 07-04-2015 Hepatic function 2000 panel - Serum or Plasma *Hepatic Function Panel [facility] Work Phone: Start: 06-27-2015 End: 07-04-2015 Lipid 1996 panel - Serum or Plasma *Lipid Profile CC PCP [facility] Work Phone: Start: 01-11-2015 End: 01-11-2015 LPN OR MEDICAL ASSISTANT LPN OR MEDICAL ASSISTANT [facility] Work Phone: Start: 01-11-2015 End: 01-11-2015 Ecg routine ecg w/least 12 lds w/i&r EKG (In office) [employer] [facility] Work Phone: Start: 01-11-2015 End: 01-11-2015 Follow Up Appt 1 year Follow Up Appt 1 year [facility] Work Phone: Start: 07-11-2014 End: 07-11-2014 [facility] [employer] [facility] Work Phone: Start: 07-11-2014 End: 12-26-2014 Ecg routine ecg w/least 12 lds w/i&r EKG (In office) [email or web address] [facility] Work Phone: Start: 07-11-2014 End: 07-11-2014 Follow Up Appt 6 months Follow Up Appt 6 months [employer] [facility] Work Phone: Start: 07-11-2014 End: 12-26-2014 Hepatic function 2000 panel - Serum or Plasma *Hepatic Function Panel [employer] [facility] Work Phone: Start: 07-11-2014 End: 12-26-2014 Lipid 1996 panel - Serum or Plasma *Lipid Profile CC PCP [employer] [facility] Work Phone: Start: 07-14-2013 End: 07-14-2013 LPN OR MEDICAL ASSISTANT [facility] [employer] [facility] Work Phone: Start: 07-14-2013 End: 07-14-2013 Follow Up Appt 1 year Follow Up Appt 1 year [facility] Work Phone: Start: 01-07-2013 End: 12-26-2014 Hepatic function 2000 panel - Serum or Plasma *Hepatic Function Panel [employer] [facility] Work Phone: Start: 01-07-2013 End: 12-26-2014 Lipid 1996 panel - Serum or Plasma *Lipid Profile [email or web address] [facility] Work Phone: Start: 10-28-2012 End: 10-22-2012 Nuclear stress test -adenosine Nuclear stress test -adenosine [facility] Work Phone: Start: 07-13-2012 End: 07-13-2012 Follow Up Appt 1 year Follow Up Appt 1 year [facility] Work Phone: Start: 07-13-2012 End: 07-14-2012 Hepatic function 2000 panel - Serum or Plasma *Hepatic Function Panel [facility] Work Phone: Start: 07-13-2012 End: 07-14-2012 Lipid 1996 panel - Serum or Plasma *Lipid Profile [facility] Work Phone: Patient Education HYPERLIPIDEMIA , HYPERTENSION%2C%20AMBULATO RY%20CARE, CHEST%20PAIN, HYPERLIPIDEMIA [facility] Work Phone: Fall risk assessment Note Date & Type Note Facility Fall risk assessment medical contraindication [facility] Work Phone: Summary Purpose Family History No Family History Records FoundNo Family History Records Found Advance Directives No Advanced Directives Records FoundNo Advanced Directives Records Found Hospital Course Note HNO ID: [id number] Author: Shahbaz Cerda) Khoa Service: Trauma Author Type: Physician Weight Training Instructor Type: Discharge Summary Filed: 03/10/2019 7:38 AM Note Text: Attestation signed by Dariel Grijalva at 03/10/2019 12:04 PM As above Dariel Grijalva MD DISCHARGE SUMMARY PATIENT NAME: Cash Floyd Code Status: Not on file Highest Readmission Risk Score: 16 The 30 day readmissions risk score is derived from an internally validated risk model which evaluates patient level characteristics, utilization history, medication orders and lab results up until the day of discharge. Patients with a score of 40 or above are considered highest risk for readmission. Specific patient level drivers will be listed at the bottom of the summary. Admission Information Admission Information ADMIT DATE: 03/02/2019 DISCHARGE DATE: 03/10/2019 (more content not included)... Note HNO ID: [id number] Author: Dakota Asecncio Service: Neurosurgery Author Type: Physician Type: Brief Op Note Filed: 03/04/2019 4:23 PM Note Text: BRIEF OPERATIVE / PROCEDURE NOTE LOG ID: [id number] SURGERY/PROCEDURE DATE: 03/04/2019 INCISION/PROCEDURE START TIME: 1:51 PM INCISION CLOSE/PROCEDURE END TIME: 3:33 PM SURGEON(S)/PROCEDURALIST(S) AND 3RD PRESSMAN(S): Surgeon(s) and Role: * Geovanny Ascencio - Primary Deli Department Manager: Antionette Johnson SA SURGERY/PROCEDURE(S): R supratentorial frontoparietal Craniotomy for evacuation of subdural hematoma ANESTHESIA: General FINDINGS: Large clotted acute subdural hematoma ESTIMATED BLOOD LOSS: 100 mls SPECIMENS: None COMPLICATIONS: None PRE-OP/PRE-PROCEDURE DIAGNOSIS: R traumatic subdural hematoma POST-OP/POST-PROCEDURE DIAGNOSIS: Subdural hematoma (HCC) [S06.5X9A] SIGNATURE: Geovanny Ascencio MD PATIENT NAME: Cash Floyd DATE: March 04, 2019 TIME: 4:20 PM PAGER/CONTACT #: Procedure Findings Note HNO ID: [id number] Author: Dakota Ascencio Service: Neurosurgery Author Type: Physician Type: Brief Op Note Filed: 03/04/2019 4:23 PM Note Text: BRIEF OPERATIVE / PROCEDURE NOTE LOG ID: [id number] SURGERY/PROCEDURE DATE: 03/04/2019 INCISION/PROCEDURE START TIME: 1:51 PM INCISION CLOSE/PROCEDURE END TIME: 3:33 PM SURGEON(S)/PROCEDURALIST(S) AND 3RD PRESSMAN(S): Surgeon(s) and Role: * Geovanny Ascencio - Primary Deli Department Manager: Antionette Johnson SA SURGERY/PROCEDURE(S): R supratentorial frontoparietal Craniotomy for evacuation of subdural hematoma ANESTHESIA: General FINDINGS: Large clotted acute subdural hematoma ESTIMATED BLOOD LOSS: 100 mls SPECIMENS: None COMPLICATIONS: None PRE-OP/PRE-PROCEDURE DIAGNOSIS: R traumatic subdural hematoma POST-OP/POST-PROCEDURE DIAGNOSIS: Subdural hematoma (HCC) [S06.5X9A] SIGNATURE: Geovanny Ascencio MD PATIENT NAME: Cash Floyd DATE: March 04, 2019 TIME: 4:20 PM PAGER/CONTACT #: Additional Source Comments (unrecognized sect ion and content) No Status Records FoundNo Status Records Found INFORMATION SOURCE (unrecogn ized section and content) DATE CREATED AUTHOR AUTHOR'S ORGANIZ ATION 05/05/2019 [facility] FOR RECORDS PERTAINING TO PATIENTS WHO ARE OR HAVE BEEN ENROLLED IN A CHEMICAL DEPENDENCY/SUBSTANCEABUSE PROGRAM, SOME INFORMATION MAY BE OMITTED. This clinical summary was aggregated from multiple sources. Caution should be exercised in using it in the provision of clinical care. This summary normalizes information from multiple sources, and as a consequence, information in this document may materially change the coding, format and clinical context of patient data. In addition, data may be omitted in some cases. CLINICAL DECISIONS SHOULD BE BASED ON THE PRIMARY CLINICAL RECORDS. [employer] provides no warranty or guarantee of the accuracy or completeness of information in this document.
[2023-11-24 10:01] LABS: Absolute Lymphocyte Count 5.23 X10^3/uL (0.83-4.51); Absolute Neutrophil Count 8.5 X10^3/uL (2.0-7.7); Basophil# 0.21 X10^3/uL; Basophil% 1.2 % (0-1); Eosinophil# 0.96 X10^3/uL; Eosinophils% 5.6 % (0-5); Hematocrit 46.2 % (40-54); Hemoglobin 15.2 g/dL (13.0-16.5); Lymphocyte # 5.23 X10^3/ul (0.83-4.51); Lymphocyte % 30.3 % (19-41); Mean Corp Hgb Conc 32.9 g/dL (32-36); Mean Corpuscular Hgb 32.9 pg (27.0-32.0); Mean Platelet Vol. 8.6 fl (6.2-12.0); Monocyte# 2.23 X10^3/uL; Monocyte% 12.9 % (0-10); NRBC Flagged by Analyzer 0 % (0-5); Neutrophil # 8.53 X10^3/uL (2.7-7.7); Neutrophil % 49.5 % (47-70); POSITIVE DIFFERENTIAL YES; Platelet Count 550 K/mm3 (150-450); RBC Distribution Width CV 13.9 % (11.6-14.6); RBC Distribution Width SD 51.2 fl (35.1-43.9); Red Blood Count 4.62 M/mm3 (4.6-6.2); White Blood Count 17.3 K/mm3 (4.4-11.0)
[2023-11-24 10:20] LABS: Differential Indicated SCAN CRITERIA MET
[2023-11-24 11:10] LABS: Differential Comment SCANNED
[2023-11-26 09:31] LABS: Pathologist Review Reviewed
== END | disposition home or self-care (01) ==
PROVIDERS: PCP Family Medicine; Visit Provider Family Medicine
DX: D72.829 Elevated white blood cell count, unspecified (principal)
CPT/HCPCS: 36415; 85025

== ENCOUNTER → 2024-03-29 | Outpatient (CLI) | payer OTHER, SELFPAY ==
--- NOTE | 2024-03-29 13:08 | RAD_ITS ---
STUDY: X-RAY - PELVIS AND LEFT HIP REASON FOR EXAM: Male, 64 years old. Hip pain. TECHNIQUE: 3 views of the pelvis and hip. COMPARISON: None. FINDINGS: There is a non-specific bowel gas pattern. Normal visualized soft tissue structures. Osteopenia. Normal bilateral iliac wings, sacroiliac joints and visualized sacrum. Normal bilateral superior and inferior pubic rami. Mild arthrosis of the symphysis pubis. Normal bilateral ischial tuberosities. Moderate lumbosacral spondylosis. Mild arthrosis of both hips. RAD/HIP, UNI W/ Pelvis 2-3 Views IMPRESSION: Osteopenia with mild arthrosis of the symphysis pubis and both hips. No acute abnormality or erosive changes. Electronically Signed: Anton Arriaza MD at 13:28 EDT ,
== END | disposition home or self-care (01) ==
LOC: MTRAD 13:06
PROVIDERS: PCP Family Medicine; Referring Provider Family Medicine; Visit Provider Family Medicine
DX: M25.552 Pain in left hip (principal)
CPT/HCPCS: 73502

== ENCOUNTER → 2024-05-30 | Outpatient (CLI) | payer OTHER, SELFPAY ==
--- NOTE | 2024-05-30 08:25 | NM_ITS ---
CLINICAL: 64-year-old male with history of low back discomfort. WHOLE BODY 99m Tc MDP RADIONUCLIDE BONE SCINTIGRAPHY COMPARISON: MRI of the lumbar spine report 03/04/2023 FINDINGS: Following the intravenous administration of 28.0 mCi of 99m Tc MDP, whole body bone images reveal: 1. Increased tracer uptake is noted in the proximal sternum to the left of midline. 2. Enhanced radiopharmaceutical concentration is noted in the mid cervical spine posteriorly on the left and right, the eighth through 10th thoracic vertebra posteriorly on the right, fourth-fifth lumbar vertebra posteriorly on the left and right, the patellofemoral and medial tibial compartments of both knees, the acromioclavicular and sternoclavicular compartments of the bilateral shoulders. 3. The remaining skeletal structures are scintigraphically unremarkable with normal-appearing right renal image and urinary bladder activity identified. The left kidney is not identified. NM/Bone Scan Whole Body IMPRESSION: 1. The increase in tracer uptake noted in the proximal sternum may be further investigated with plain film radiography. 2. Degenerative arthritis is demonstrated in the cervical, thoracic and lumbar spine, bilateral knees and shoulders. Electronically Signed: Cong Espino DO at 8:29 EDT ,
== END | disposition home or self-care (01) ==
LOC: NM 08:22
PROVIDERS: PCP Family Medicine; Referring Provider Nurse Practitioner; Visit Provider Nurse Practitioner
DX: M48.061 Spinal stenosis, lumbar region without neurogenic claudication (principal)
CPT/HCPCS: 78306; A9503

== ENCOUNTER → 2024-11-24 | Outpatient (CLI) | payer OTHER, SELFPAY ==
--- NOTE | 2024-11-24 15:30 | MRI_ITS ---
STUDY: MRI LUMBAR SPINE WITH AND WITHOUT CONTRAST REASON FOR EXAM: Male, 64 years old. STENOSIS TECHNIQUE: Standardized fat and water weighted pulse sequences were obtained in the sagittal and axial planes. IV 25ml clariscan was administered for the contrast portion of the examination. COMPARISON: March 04, 2023 FINDINGS: T12-L1: Normal endplates. Normal disc height, hydration and normal morphology. Normal bilateral facet joints. Normal central canal and bilateral lateral recesses. Normal bilateral intervertebral neural foramina. Normal lumbar lordosis. There is no substantial scoliosis. Normal conus medullaris that terminates at T12-L1 L1-2: Normal endplates. Normal disc height, hydration and normal morphology. Normal bilateral facet joints. Normal central canal and bilateral lateral recesses. Normal bilateral intervertebral neural foramina. L2-3: Normal endplates. Normal disc height, hydration and normal morphology.. Normal bilateral facet joints. Normal central canal and bilateral lateral recesses. Normal bilateral intervertebral neural foramina. L3-4: Normal endplates. Normal disc height, hydration and minimal annular bulge.. Facet arthropathy and mild thickening of ligamenta flava. Normal central canal and bilateral lateral recesses. Moderate bilateral neural foraminal stenosis exaggerated by shortened pedicles. L4-5: Status post bilateral laminectomy posterior fusion Normal endplates. Normal disc height, hydration and minimal annular bulge.. Mild facet arthropathy. Normal central canal and bilateral lateral recesses. Mild bilateral neural foraminal encroachment exaggerated by shortened pedicles. L5-S1: Normal endplates. Normal disc height, desiccation and minimal annular bulge.. Facet arthropathy.. Normal central canal and bilateral lateral recesses. Moderate bilateral neural foraminal encroachment Normal visualized sacral ala. . Postsurgical changes at L4-5 are new finding since prior study No other significant interval change There is mild diffuse epidural enhancement at L4-5 consistent with epidural fibrosis There is no evidence for acute osteomyelitis or discitis MRI/Spine Lumbar W/WO Contrast IMPRESSION: Multilevel disc degeneration and mild multilevel spinal stenosis secondary to bulging annuli and facet arthropathy exaggerated by shortened pedicles. Postsurgical changes at L4-5. No acute fracture or other significant bony pathology Electronically Signed: Deon Gilliam MD at 16:57 EST Reading Location ID and State: [address] [place] [address] Tel , Service support ,
[2024-11-24 16:06] LABS: CREATININE FINGERSTICK < 1.0 mg/dL (0.70-1.30); EGFR FINGERSTICK > 60.0000 mL/min (>60)
== END | disposition home or self-care (01) ==
LOC: MRI 15:25
PROVIDERS: PCP Family Medicine; Referring Provider Nurse Practitioner; Visit Provider Nurse Practitioner
DX: M48.061 Spinal stenosis, lumbar region without neurogenic claudication (principal)
CPT/HCPCS: 72158; A9575; A4216

== ENCOUNTER → 2025-04-13 | Outpatient (CLI) | payer OTHER, SELFPAY ==
[2025-04-13 20:34] LABS: International Normalized Ratio 2.1; Prothrombin Time (Protime)PT. 24.2 SECONDS (11.7-14.9)
== END | disposition home or self-care (01) ==
LOC: MFPLAB 14:49
PROVIDERS: PCP Family Medicine; Referring Provider Family Medicine; Visit Provider Family Medicine
DX: G54.9 Nerve root and plexus disorder, unspecified (principal)
CPT/HCPCS: 36415; 85610

== ENCOUNTER → 2025-07-04 | Outpatient (CLI) | payer OTHER, SELFPAY ==
[2025-07-04 18:20] LABS: Cholesterol 237 mg/dL (<=200); Low Density Lipoprotein Calc. 135 mg/dL; Triglycerides 318 mg/dL; Very Low Density Lipoprotein 64 mg/dL (5-40); cholesterol:hdl ratio screen 6.16
== END | disposition home or self-care (01) ==
LOC: MFPLAB 15:15
PROVIDERS: PCP Family Medicine; Referring Provider Family Medicine; Visit Provider Family Medicine
DX: I10 Essential (primary) hypertension (principal)
CPT/HCPCS: 36415; 80061; 83036